=== PATIENT | female | born 1940 | race Two or more races ===

== ENCOUNTER 2021-05-07 11:30 | Emergency (ER) | payer MEDICARE ==
[~2021-05-07] VITALS: Ht 152.4 cm; Wt 52.0 kg
--- NOTE | 2021-05-07 11:57 | NUR ---
PT TO ROOM FROM TRIAGE, PT CHANGED INTO GOWN. ALL MONITORS IN PLACE. CALL LIGHT WITHIN REACH. DAUGHTER AT BS
--- NOTE | 2021-05-07 12:06 | NUR ---
PA AT BS
[2021-05-07] MEDS ORDERED: METOPROLOL TARTRATE 50 MG TAB ONE (12:17)
[2021-05-07 12:25] LABS: BASOPHILS % (AUTO) 1 % (0-1); EOSINOPHILS % (AUTO) 2 % (1-7); LYMPHOCYTES % (AUTO) 40 % (22-44); MEAN CORPUSCULAR HEMOGLOBIN 34.8 pg (27.0-34.8); MEAN CORPUSCULAR HGB CONC 35.1 g/dL (32.4-35.8); MEAN PLATELET VOLUME 9.2 fL (7.4-10.4); MONOCYTES % (AUTO) 5 % (2-9); NEUTROPHILS % (AUTO) 52 % (42-75); PLATELET COUNT 211 x10^3/uL (130-400); RED BLOOD COUNT 4.65 x10^6/uL (3.82-5.3); RED CELL DISTRIBUTION WIDTH 12.8 % (9.6-15.2)
[2021-05-07] MEDS ORDERED: METOPROLOL TARTRATE 50 MG TAB PO ONE (12:30)
[2021-05-07 12:35] LABS: ALANINE AMINOTRANSFERASE 32 U/L (12-78); ALBUMIN 4.2 g/dL (3.4-5.0); ANION GAP 8 mmol/L (5-15); CALCIUM 9.9 mg/dL (8.5-10.1); CHLORIDE 107 mmol/L (98-107); CREATININE 0.96 mg/dL (0.55-1.02)
--- NOTE | 2021-05-07 12:35 | NUR ---
BREAK RN: PT DENIES BAIG/BLURRY VISION/DIZZY/CHEST PAIN. DAUGHTER AT BEDSIDE, CALL BUCIO IN REACH, NO NEEDS AT THIS TIME.
[2021-05-07 12:40] LABS: ALKALINE PHOSPHATASE 106 U/L (45-117); BILIRUBIN,TOTAL 0.7 mg/dL (0.2-1.0); TOTAL PROTEIN 9.1 g/dL (6.4-8.2)
--- NOTE | 2021-05-07 12:59 | NUR ---
PT AMBULATORY TO BR WITH UPRIGHT, STEADY GAIT
--- NOTE | 2021-05-07 13:20 | NUR ---
THIS RN, COMMUNICATED WITH АЛЕКСАНДР AND REGARDING BP UPON DC. АЛЕКСАНДР AND BOTH AGREED THEY ARE AWARE OF PT'S BP AND ARE OKAY DC'ING PT D/T PT BEING ASYMPTOMATIC.
[2021-05-07 13:22] VITALS: BP 205/88
--- NOTE | 2021-05-07 13:25 | NUR ---
PA AT BS TO ANSWER QUESTIONS REGARDING MEDICATIONS BEFORE DC.
--- NOTE | 2021-05-07 13:28 | NUR ---
Patient/Caregiver given discharge instructions and RX, they have confirmed that they understand the instructions. Patient ambulatory with steady gait.
== END 2021-05-07 13:31 | disposition home or self-care (01) ==
LOC: ED 13:25
DX: I10 Essential (primary) hypertension (principal); R07.9 Chest pain, unspecified; R00.0 Tachycardia, unspecified; E78.5 Hyperlipidemia, unspecified; E11.65 Type 2 diabetes mellitus with hyperglycemia; Z90.710 Acquired absence of both cervix and uterus
CPT/HCPCS: 36415; 71045; 80053; 83880; 85025; 93005; 99285